=== PATIENT | female | born 1975 | race Caucasian/White ===

== ENCOUNTER 2017-01-21 13:51 | Outpatient (CLI) ==
[2013-04-14 18:17] VITALS: TEMP 98.6
[2015-06-29 22:19] VITALS: BMI 38.0
--- NOTE | 2017-01-21 14:52 | DI ---
Examination: Two radiographic images of the abdomen. Comparison: None available. Reason for study: Unspecified abdominal pain. FINDINGS: The partially air filled loops of bowel are seen throughout the abdomen with air seen to the level of the rectosigmoid colon. No definite calcific densities are seen overlying the expected location of either kidney or the ureters. The imaged osseous structures are unremarkable without e vidence of fracture or malalignment. Impression: 1. Nonspecific, nonobstructive bowel gas pattern. 2. No calcific densities are seen within the expected location of the kidneys or ureters.
== END 2017-01-21 13:52 | disposition home or self-care (01) ==
LOC: RAD 13:51
PROVIDERS: ATTEND Nurse Practitioner Family
DX: R10.9 Unspecified abdominal pain (principal)

== ENCOUNTER 2017-05-18 11:52 | Outpatient (CLI) ==
[2013-04-14 18:17] VITALS: TEMP 98.6
[2015-06-29 22:19] VITALS: BMI 38.0
--- NOTE | 2017-05-18 12:39 | DI ---
EXAM: RIGHT KNEE. HISTORY: Knee pain. FINDINGS: Right knee four view. There appears to be at least mild decreased articular cartilage wi dth in the anterior compartment. The medial and lateral compartments appear normal. Normal bone de nsity. No fracture or joint effusion. Soft tissues within normal limits. IMPRESSION: Early osteoarthritis of the anterior compartment.
== END 2017-05-18 11:53 | disposition home or self-care (01) ==
LOC: RAD 11:52
PROVIDERS: ATTEND Nurse Practitioner Family
DX: M25.561 Pain in right knee (principal)

== ENCOUNTER 2018-05-10 09:12 | Outpatient (CLI) ==
[2013-04-14 18:17] VITALS: TEMP 98.6
[2015-06-29 22:19] VITALS: BMI 38.0
== END 2018-05-10 09:13 | disposition home or self-care (01) ==
LOC: RHC-LAB 09:12
PROVIDERS: ATTEND Nurse Practitioner Family
DX: Z00.00 Encounter for general adult medical examination without abnormal findings (principal); F41.9 Anxiety disorder, unspecified
CPT/HCPCS: 36415; 80053; 80061; 84443; 85025

== ENCOUNTER 2018-05-18 11:59 | Outpatient (CLI) ==
[2013-04-14 18:17] VITALS: TEMP 98.6
[2015-06-29 22:19] VITALS: BMI 38.0
== END 2018-05-18 12:00 | disposition home or self-care (01) ==
LOC: RAD 11:59
PROVIDERS: ATTEND Nurse Practitioner Family
DX: Z12.31 Encounter for screening mammogram for malignant neoplasm of breast (principal); E66.3 Overweight
CPT/HCPCS: 77067; 93005; 93010

== ENCOUNTER 2018-07-03 14:50 | Emergency (ER) | payer MEDICAID, OTHER ==
[2018-07-03 14:56] VITALS: BP 128/86; TEMP 98.8; BMI 36.8
[2018-07-03] MEDS ORDERED: MOTRIN PO STA (15:31)
--- NOTE | 2018-07-03 16:05 | ED.PDOC ---
General ED Provider: Dr. VIVEK COLEY Chief Complaint: Extremity Pain/Injury Stated Complaint: Patient is a 42 year old female who comes to the ER after feeling a pop when she tried to wrestle with her 90 lb dog. she is still able to bear weight. Time Seen by Physician: 16:03 Mode of Arrival: Walk-In Information Source: Patient Exam Limitations: No limitations [facility] and Triage Documentation Reviewed and Agree: Yes Does patient meet sepsis criteria?: No System Inflammatory Response Syndrome: Not Applicable Sepsis Protocol: For patient's 13 years and over: Temp is 96.8 and below OR 101 and greater Pulse >90 BPM Resp >20/minute Acutely Altered Mental Status Are patient's symptoms suggestive of a new infection, such as: -Pneumonia -Skin, Soft Tissue -Endocarditis -UTI -Bone, Joint Infection -Implantable Device -Acute Abdominal Infection -Wound Infection -Meningitis -Blood Stream Catheter Infection -Unknown Review of Systems - Review Of Systems Constitutional: Reports: No symptoms Eyes: Reports: No symptoms Ears, Nose, Mouth, Throat: Reports: No symptoms Respiratory: Reports: No symptoms Cardiac: Reports: No symptoms GI: Reports: No symptoms : Reports: No symptoms Musculoskeletal: Reports: Joint pain Skin: Reports: No symptoms Neurological: Reports: Anxiety Endocrine: Reports: No symptoms Hematologic/Lymphatic: Reports: No symptoms All Other Systems: Reviewed and Negative Past Medical History - Past Medical History Endocrine: Reports: None Cardiovascular: Reports: None Respiratory: Reports: None Hematological: Reports: None Gastrointestinal: Reports: None Genitourinary: Reports: None Neuro/Psych: Reports: Migraine, Anxiety Musculoskeletal: Reports: Joint Pain Cancer: Reports: None Last Menstrual Period: 3 days ago - Surgical History General Surgical History: Reports: Unknown - Family History Family History: Reports: Unknown - Social History Smoking Status: Current some day smoker Hx Substance Use: No Alcohol Screening: None - Immunizations Tetanus Shot up to Date: Yes Physical Exam - Physical Exam Appearance: Well-appearing, No pain distress, Well-nourished Eyes: JEROME, EOMI, Conjunctiva clear ENT: Ears normal, Nose normal, Oropharynx normal Respiratory: Airway patent, Breath sounds clear, Breath sounds equal, Respirations nonlabored Cardiovascular: RRR, Pulses normal, No rub, No murmur GI/: Soft, Nontender, No masses, Bowel sounds normal, No Organomegaly Musculoskeletal: Normal strength, No edema, No calf tenderness, Limited ROM Skin: Warm, Dry, Normal color Neurological: Sensation intact, Motor intact, Reflexes intact, Cranial nerves intact, Alert, Oriented Psychiatric: Affect appropriate, Mood appropriate Critical Care Note - Critical Care Note Total Time (mins): 0 Course - Course Orders, Labs, Meds: Orders Category Date Time Status ED APPLY ICE AFFECTED AREA .ONCE EMERGENCY 07/03/18 15:31 Active Ibuprofen [Motrin] MEDS 07/03/18 15:31 Discontinued 800 mg PO ONCE STA Medications Discontinued Medications Generic Name Dose Route Start Last Admin Trade Name Freq PRN Reason Stop Dose Admin Ibuprofen 800 mg 07/03/18 15:31 07/03/18 15:39 Motrin PO 07/03/18 15:32 800 mg ONCE STA Administration Vital Signs: Temp Pulse Resp BP Pulse Ox 07/03/18 14:52 98.8 F 90 16 128/86 95 Departure - Departure Time of Disposition: 16:05 Disposition: HOME SELF-CARE Discharge Problem: Strain of calf muscle Qualifiers: Encounter type: initial encounter Laterality: left Qualified Code(s): S86.812A - Strain of other muscle(s) and tendon(s) at lower leg level, left leg, initial encounter Instructions: Muscle Strain (ED) Condition: Stable Pt referred to PMD for follow-up: Yes IPMP verified?: No Additional Instructions: Use Ice Take motrin as needed for pain Follow up with PCP if not better for MRI and Physical therapy Allergies/Adverse Reactions: Allergies codeine Adverse Reaction (Verified 06/29/15 22:24) Disposition Discussed With: Patient
== END 2018-07-03 16:30 | disposition home or self-care (01) ==
LOC: ED 14:50
DX: S86.812A Strain of other muscle(s) and tendon(s) at lower leg level, left leg, initial encounter (principal); X50.1XXA Overexertion from prolonged static or awkward postures, initial encounter; F17.210 Nicotine dependence, cigarettes, uncomplicated
CPT/HCPCS: 99282

== ENCOUNTER 2019-03-29 11:18 | Outpatient (CLI) ==
[2013-04-14 18:17] VITALS: TEMP 98.6
== END 2019-03-29 11:19 | disposition home or self-care (01) ==
LOC: RHC-LAB 11:18
PROVIDERS: ATTEND Nurse Practitioner Family
DX: Z00.00 Encounter for general adult medical examination without abnormal findings (principal)
CPT/HCPCS: 36415; 80053; 80061; 84443; 85025